=== PATIENT | female | born 1960 | race Caucasian/White ===

== ENCOUNTER 2017-06-29 07:21 | Day surgery (SDC) | payer OTHER ==
[~2017-06-29 07:21] MED LIST: ACETAMINOPHEN 1,000 MG/100 ML BTL IV ONE; CEFAZOLIN 2 Gram 2 GM/50 ML BAG IVPB ONE
[2017-06-29 07:30] LABS: BASO % 0.5 % (0-6); EOS % 1.5 % (0-6); GRAN % 64.1 % (47-80); HEMOGLOBIN 14.4 gm/dl (11.6-16.0); LYMPH % 26.5 % (16-45); MEAN CORPUSCULAR HEMOGLOBIN 30.8 pg (27-33); MEAN CORPUSCULAR HGB CONC 32.7 g/dl (32-36); MEAN PLATELET VOLUME 10.5 fl (7.4-10.4); MONO % 7.4 % (0-9); PLATELET COUNT 282 K/uL (130-400); RED BLOOD COUNT 4.68 M/uL (3.80-5.40); RED CELL DISTRIBUTION WIDTH 13.4 % (11.5-14.5); WHITE BLOOD COUNT W/O DIFF 11.4 K/uL (4.2-12.2)
[2017-06-29] MEDS ORDERED: PHENYLEPHRINE HCL 10 MG/ML VIAL IVP ONE (14:00)
--- NOTE | 2017-06-29 14:10 | Operative Note ---
DATE OF SURGERY: 06/29/2017 Surgeon: Rafael Flood D.O. REFERRING PHYSICIAN: Polo Pierre D.O. PREOPERATIVE DIAGNOSIS: Carpometacarpal osteoarthritis of the left thumb. POSTOPERATIVE DIAGNOSIS: Carpometacarpal osteoarthritis of the left thumb. OPERATION: Hemiarthroplasty of the left thumb at the carpometacarpal joint. PROCEDURE: This 57-year-old female was taken to the operating room and placed in the supine position on the operating room table. A general anesthetic was administered, and the left upper extremity was elevated, prepped with Hibiclens, and draped in the usual sterile fashion. It was exsanguinated and the tourniquet inflated to 250 mm Hg. The operative procedure was performed with 3.5 loupe magnification. An incision was made on the dorsal surface of the 1st metacarpal and crossing the trapezium. The extensor brevis and extensor longus were retracted, and incision was made in the periosteum and joint capsule longitudinally in line with the skin incision, taking care to protect the radial artery. A "T"-type incision was then made in the capsule for better exposure, and subperiosteal elevation was carried out around the thumb, both in a radial and ulnar direction, about 260-270 degrees around the thumb, leaving the adductor still intact. We were then easily able to sublux the joint. At this time, a pin was placed up the 1st metacarpal and the image intensifier used to confirm satisfactory position and alignment. The awl was used to slightly open the hole. We then utilized the sizer to confirm that a size small was seen to be the appropriate size. A uma was made on the metacarpal, and the cutting guide was then affixed. An approximately 3-4 mm cut was made on the metacarpal base, and this fragment of bone was subsequently removed. This gave us excellent exposure to the trapezium, and the sizing guide was placed in the middle of the trapezium, and K-wire was then advanced through the sizer and the image intensifier used to confirm excellent position and alignment of the K-wire within the trapezium, both in the AP and lateral projection. Subsequently, a small reamer was used to ream to the base of the reamer to the appropriate depth. Once this had been accomplished, the polishing reamer was placed to be sure that we had removed sufficient bone. It was seen to be satisfactory. The wound was copiously irrigated to remove all chips of bone. Osteophytes were also removed, mostly from the ulnar side and the anterior aspect of the trapezium. Subsequently, the canal was broached first with a size 10 small, and subsequently a 20 small was impacted into place, which we felt gave us excellent fit. Again, the image intensifier was used to confirm appropriate position and alignment. Once this had been accomplished, the trial component was inserted and this had a good fit and was not too loose, not too tight. It snapped into place easily, and we manipulated the thumb gently in an attempt to dislocate the joint and that was not possible without pulling on it and pushing the base in a dorsal direction. This was felt to be satisfactory, and the wound was copiously irrigated with lactated Ringer solution, and the final component was then impacted into place with full seating on the metacarpal. This was seen to be excellent. The prosthesis reduced and the image intensifier was again used to confirm position and alignment and felt to be satisfactory. The wound was again irrigated and suctioned. The arthrotomy incision was then closed with 0 Vicryl, as was the periosteum, with good tight closure, and it was felt to be satisfactory. The radial artery was kept in vision during the closure. The superficial branches of the radial nerve were also protected. The subcutaneous tissue was then closed with 4-0 Vicryl and the skin closed with a running 4-0 nylon suture. Sterile dressings with plaster splint immobilization were applied with the thumb held in an abducted position, and the patient was taken to the recovery room in satisfactory condition. GROSS PATHOLOGY: This patient had severe, full-thickness articular cartilage loss noted on the trapezium as well as the base of the 1st metacarpal, and the joint was subluxed. After completion of the prosthetic insertion, it was reduced and held securely in place. A size 20 small head Nu [employer] component was placed. [facility]
[2017-06-29] MEDS ORDERED: OXYCODONE HCL/APAP 5MG/325MG TABLET PO ONE (14:34)
[2017-06-29] MEDS ORDERED: HYDROMORPHONE HCL 2 MG/ML VIAL IV ONE (14:34)
[2017-06-29] MEDS ORDERED: PROPOFOL 10 MG/ML VIAL IV ONE (14:37)
[2017-06-29] MEDS ORDERED: MEPERIDINE 50 MG/1 ML VIAL IVP ONE (14:37)
[2017-06-29] MEDS ORDERED: KETOROLAC 30 MG/ML VIAL IVP ONE (14:37)
[2017-06-29] MEDS ORDERED: SEVOFLURANE 250 ML INH ONE (14:37)
[2017-06-29] MEDS ORDERED: ATROPINE SULFATE 0.4 MG/ML 20ML IVP ONE (14:37)
[2017-06-29] MEDS ORDERED: LIDOCAINE 2% MDV (20MG/ML) 20ML VIAL IV ONE (14:37)
[2017-06-29] MEDS ORDERED: FENTANYL PF 100MCG/2ML VIAL IV ONE (14:37)
== END 2017-06-29 11:20 | disposition home or self-care (01) ==
LOC: SUR 07:21
PROVIDERS: ATTEND Orthopaedic Surgery
DX: M19.042 Primary osteoarthritis, left hand (principal); Z85.41 Personal history of malignant neoplasm of cervix uteri; F17.200 Nicotine dependence, unspecified, uncomplicated
CPT/HCPCS: 26531; 01830; 85025; 76000; J1885; J3010; J1170; J0690; J2370